=== PATIENT | female | born 1940 | race African-American/Black ===

== ENCOUNTER → 2018-08-04 | Outpatient (CLI) | payer MEDICARE, MEDICAID ==
[2018-08-04 11:07] LABS: ABSOLUTE BASOPHILS # (AUTO) 0.1 10^3/uL (0.0-0.2); ABSOLUTE EOSINOPHILS # (AUTO) 0.3 10^3/uL (0.0-0.6); ABSOLUTE LYMPHOCYTES (AUTO) 2.3 10^3/uL (0.5-4.7); ABSOLUTE MONOCYTES (AUTO) 0.8 10^3/uL (0.1-1.4); BASOPHILS % (AUTO) 1.8 % (0-2); EOSINOPHILS % (AUTO) 4.7 % (0-6); HEMATOCRIT 34.6 % (36.0-47.0); HEMOGLOBIN 11.4 g/dL (12.0-15.5); LYMPHOCYTES % (AUTO) 43.2 % (13-45); MEAN CORPUSCULAR HEMOGLOBIN 25.4 pg (27.0-33.4); MEAN CORPUSCULAR VOLUME 77 fl (80-97); MONOCYTES % (AUTO) 13.9 % (3-13); PLATELET COUNT 255 10^3/uL (150-450); RED BLOOD COUNT 4.49 10^6/uL (3.72-5.28); RED CELL DISTRIBUTION WIDTH 15.7 % (11.5-14.0); SEGMENTED NEUTROPHILS % (AUTO) 36.4 % (42-78); TOTAL CELLS COUNTED % (AUTO) 100 %; WHITE BLOOD COUNT 5.4 10^3/uL (4.0-10.5)
[2018-08-04 11:33] LABS: APPEARANCE,URINE TURBID; BILIRUBIN,URINE NEGATIVE (NEGATIVE); COLOR,URINE YELLOW; GLUCOSE, URINE NEGATIVE (NEGATIVE); KETONES,URINE NEGATIVE (NEGATIVE); LEUKOCYTE ESTERASE,URINE LARGE (NEGATIVE); NITRITE,URINE NEGATIVE (NEGATIVE); PROTEIN,URINE NEGATIVE (NEGATIVE); URINE SPECIFIC GRAVITY 1.008; UROBILINOGEN,URINE NEGATIVE mg/dL (<2.0)
[2018-08-04 12:57] LABS: ALANINE AMINOTRANSFERASE 21 U/L (9-52); ALBUMIN 4.2 g/dL (3.5-5.0); ALKALINE PHOSPHATASE 79 U/L (38-126); ANION GAP 13 (5-19); ASPARTATE AMINO TRANSFERASE 25 U/L (14-36); BILIRUBIN,DIRECT 0.2 mg/dL (0.0-0.4); BILIRUBIN,TOTAL 0.4 mg/dL (0.2-1.3); BLOOD UREA NITROGEN 33 mg/dL (7-20); CALCIUM 9.8 mg/dL (8.4-10.2); CARBON DIOXIDE 28 mmol/L (22-30); CHLORIDE 102 mmol/L (98-107); GLUCOSE 96 mg/dL (75-110); IRON(TIBC) 71.5 ug/dL (37-170); PHOSPHORUS 4.5 mg/dL (2.5-4.5); POTASSIUM 3.9 mmol/L (3.6-5.0); SODIUM 142.7 mmol/L (137-145); TOTAL PROTEIN 7.5 g/dL (6.3-8.2)
[2018-08-05 16:37] LABS: ALBUMIN 2 3.6 g/dL (2.9-4.4); ALPHA-2-GLOBULIN 2 0.9 g/dL (0.4-1.0); BETA GLOBULINS 1.2 g/dL (0.7-1.3); GAMMA GLOBULIN 1.2 g/dL (0.4-1.8); GLOBULIN TOTAL 3.6 g/dL (2.2-3.9); MONOCLONAL SPIKE 0.4 g/dL (Not Observ); PROTEIN TOTAL SERUM 7.2 g/dL (6.0-8.5)
== END ==
LOC: OD 10:12
PROVIDERS: ATTEND Internal Medicine Nephrology
DX: I12.9 Hypertensive chronic kidney disease with stage 1 through stage 4 chronic kidney disease, or unspecified chronic kidney disease (principal); N18.3 Chronic kidney disease, stage 3 (moderate); D63.1 Anemia in chronic kidney disease
CPT/HCPCS: 36415; 80053; 81001; 82728; 83540; 83550; 83735; 83970; 84100; 84165; 84443; 85025

== ENCOUNTER → 2018-08-11 | Outpatient (CLI) | payer MEDICARE, MEDICAID | LOC: OD 16:31 | PROVIDERS: ATTEND Internal Medicine Nephrology | DX: N39.0 Urinary tract infection, site not specified (principal) | CPT/HCPCS: 87086; 87088; 87186 ==

== ENCOUNTER 2018-08-13 09:50 | Day surgery (SDC) | payer MEDICARE, MEDICAID ==
[~2018-08-13 09:50] MED LIST: PROPOFOL INJ 200 MG/20 ML VIAL IV ONE
--- NOTE | 2018-08-13 10:38 | Operative Report ---
Operative Report DATE OF SURGERY: 08/13/18 Operative Report: The risks, benefits and alternatives of the procedure including the risks of bleeding, perforation requiring surgery have been explained to the patient in detail and informed consent has been obtained. Patient is placed in the left, lateral decubital position. Timeout was called. Propofol medication is administered. A rectal examination is done which did not reveal any masses, tears or fissures. An Olympus videoscope was introduced into the patient's rectum. The scope was then carefully advanced all the way to the cecum. The cecum was identified by the usual anatomical landmarks including the ileocecal valve as well as the appendiceal office. Photodocumentation is obtained. The scope was then sequentially pulled back via the various segments of the colon including the ascending colon, hepatic flexure, transverse colon, splenic flexure, descending colon and finally into the rectosigmoid portions of the colon. Retroflexion maneuvers performed. PREOPERATIVE DIAGNOSIS: Personal history of polyp POSTOPERATIVE DIAGNOSIS: Normal screening colonoscopy OPERATION: Colonoscopy diagnostic SURGEON: MEI WILKES ANESTHESIA: LMAC TISSUE REMOVED OR ALTERED: None. COMPLICATIONS: None. ESTIMATED BLOOD LOSS: As noted above. INTRAOPERATIVE FINDINGS: Incidental finding of diverticulosis and internal hemorrhoids PROCEDURE: Patient tolerated the procedure well. No immediate postprocedure complications are noted. Patient is discharged in good condition. Date of discharge 08/13/2018. Discharge diet: Regular. Discharge activity: Regular. 2 to 3-week follow-up to discuss findings. Patient is instructed to call the office or proceed to the emergency room should there be any further problems or questions. 10-year surveillance colonoscopy.
[2018-08-13 11:49] VITALS: BP 137/53
== END 2018-08-13 11:10 | disposition home or self-care (01) ==
LOC: END 09:50
PROVIDERS: ATTEND Internal Medicine Gastroenterology
DX: Z12.11 Encounter for screening for malignant neoplasm of colon (principal); K64.8 Other hemorrhoids; K57.30 Diverticulosis of large intestine without perforation or abscess without bleeding; Z86.010 Personal history of colon polyps; E03.9 Hypothyroidism, unspecified; I48.2 Chronic atrial fibrillation; Z79.899 Other long term (current) drug therapy; Z79.51 Long term (current) use of inhaled steroids; Z79.01 Long term (current) use of anticoagulants
CPT/HCPCS: 45378; 00811; J2704; 811

== ENCOUNTER 2018-10-26 16:56 | Observation (INO) | payer MEDICARE, MEDICAID ==
[~2018-10-26 16:56] MED LIST changes: -PROPOFOL INJ 200 MG/20 ML VIAL IV ONE; +REGADENOSON INJ 0.4 MG/5 ML DISP.SYRIN IV ONE
--- NOTE | 2018-10-26 18:53 | ER Document Report ---
ED Medical Screen (RME) - General Chief Complaint: Chest Pain Stated Complaint: CHEST PAIN Time Seen by Provider: 10/26/18 18:48 Primary Care Provider: Leo ANDERSEN MD [Primary Care Provider] - Follow up as needed Mode of Arrival: Ambulatory Information source: Patient Notes: Patient is a 78-year-old female presenting to the emergency department with chief complaint of chest pain. Patient reports onset of midsternal chest pressure approximately 1 hour prior to arrival. She states she also felt some palpitations with this. She denies any radiation of the pain, shortness of breath or nausea does report she had some numbness and tingling in her left hand. She states that the symptoms have mostly resolved. She does report a history of atrial fibrillation. Exam: Heart sounds S1-S2 present with no ectopy noted. Lung sounds clear and equal bilaterally. I have greeted and performed a rapid initial assessment of this patient. A comprehensive ED assessment and evaluation of the patient, analysis of test results and completion of the medical decision making process will be conducted by additional ED providers. I have specifically instructed the patient or family members with the patient to immediately return to any nursing staff should anything change in the patient's condition or with their chief complaint. This medical record was dictated with voice recognizing software. There may be grammatical, syntax errors that are unintended. TRAVEL OUTSIDE OF THE [place] IN LAST 30 DAYS: No - Related Data Allergies/Adverse Reactions: No Known Allergies Allergy (Verified 10/26/18 17:00) Past Medical History - Past Medical History Cardiac Medical History: Reports: Hx Hypertension Denies: Hx Coronary Artery Disease, Hx Heart Attack Pulmonary Medical History: Denies: Hx Asthma, Hx Bronchitis, Hx COPD, Hx Pneumonia Neurological Medical History: Denies: Hx Cerebrovascular Accident, Hx Seizures Musculoskeltal Medical History: Denies Hx Arthritis Past Surgical History: Reports: Hx Hysterectomy, Hx Thyroid Surgery - Immunizations Hx Diphtheria, Pertussis, Tetanus Vaccination: Yes Physical Exam - Vital signs Vitals: Temp Pulse Resp BP Pulse Ox 98.6 F 62 18 129/51 H 93 10/26/18 17:15 10/26/18 17:15 10/26/18 17:15 10/26/18 17:15 10/26/18 17:15 Course - Vital Signs Vital signs: Temp Pulse Resp BP Pulse Ox 98.6 F 62 18 129/51 H 93 10/26/18 17:15 10/26/18 17:15 10/26/18 17:15 10/26/18 17:15 10/26/18 17:15 Doctor's Discharge - Discharge Referrals: Leo ANDERSEN MD [Primary Care Provider] - Follow up as needed
--- NOTE | 2018-10-26 19:26 | RADIOLOGY REPORT (SQ) ---
EXAM DESCRIPTION: CHEST 2 VIEWS COMPLETED DATE/TIME: 10/26/2018 7:13 pm REASON FOR STUDY: chest pain COMPARISON: 08/26/2014 EXAM PARAMETERS: NUMBER OF VIEWS: two views TECHNIQUE: Digital Frontal and Lateral radiographic views of the chest acquired. RADIATION DOSE: NA LIMITATIONS: none FINDINGS: LUNGS AND PLEURA: No opacities, masses or pneumothorax. No pleural effusion. MEDIASTINUM AND HILAR STRUCTURES: No masses or contour abnormalities. HEART AND VASCULAR STRUCTURES: Borderline cardiomegaly. No pulmonary edema. BONES: No acute findings. HARDWARE: None in the chest. OTHER: No other significant finding. IMPRESSION: Borderline cardiomegaly without pulmonary edema. TECHNICAL DOCUMENTATION: JOB ID: [id number] [employer]- All Rights Reserved Reading location - IP/workstation name: [email or web address]
[2018-10-26 19:28] LABS: ABSOLUTE BASOPHILS # (AUTO) 0.1 10^3/uL (0.0-0.2); ABSOLUTE EOSINOPHILS # (AUTO) 0.4 10^3/uL (0.0-0.6); ABSOLUTE LYMPHOCYTES (AUTO) 3.4 10^3/uL (0.5-4.7); ABSOLUTE NEUT (AUTO) 4.1 10^3/uL (1.7-8.2); BASOPHILS % (AUTO) 0.9 % (0-2); EOSINOPHILS % (AUTO) 4.2 % (0-6); HEMATOCRIT 33.9 % (36.0-47.0); HEMOGLOBIN 11.2 g/dL (12.0-15.5); LYMPHOCYTES % (AUTO) 37.8 % (13-45); MEAN CORPUSCULAR HEMOGLOBIN 26.1 pg (27.0-33.4); MEAN CORPUSCULAR HGB CONC 33.2 g/dL (32.0-36.0); MEAN CORPUSCULAR VOLUME 79 fl (80-97); MONOCYTES % (AUTO) 11.1 % (3-13); PLATELET COUNT 255 10^3/uL (150-450); RED CELL DISTRIBUTION WIDTH 15.7 % (11.5-14.0); TOTAL CELLS COUNTED % (AUTO) 100 %; WHITE BLOOD COUNT 8.9 10^3/uL (4.0-10.5)
[2018-10-26 19:48] LABS: ALBUMIN 4.2 g/dL (3.5-5.0); ALKALINE PHOSPHATASE 76 U/L (38-126); ANION GAP 8 (5-19); ASPARTATE AMINO TRANSFERASE 30 U/L (14-36); BILIRUBIN,DIRECT 0.1 mg/dL (0.0-0.4); BILIRUBIN,TOTAL 0.3 mg/dL (0.2-1.3); BLOOD UREA NITROGEN 29 mg/dL (7-20); CALCIUM 9.4 mg/dL (8.4-10.2); CARBON DIOXIDE 34 mmol/L (22-30); CHLORIDE 101 mmol/L (98-107); GLUCOSE 99 mg/dL (75-110); POTASSIUM 3.7 mmol/L (3.6-5.0); TOTAL PROTEIN 7.7 g/dL (6.3-8.2)
[2018-10-26] MEDS ORDERED: ASPIRIN 325 MG TABLET PO ONE (20:12)
--- NOTE | 2018-10-26 20:12 | ER Document Report ---
ED General - General Chief Complaint: Chest Pain Stated Complaint: CHEST PAIN Time Seen by Provider: 10/26/18 18:48 Primary Care Provider: Leo ANDERSEN MD [Primary Care Provider] - Follow up as needed Mode of Arrival: Ambulatory Notes: 78-year-old lady with A. fib, hypertension hyperlipidemia on Pradaxa who presents with chest pain. Described as "like a cramping or thigh but in my ch est" and intermittent for minutes at a time starting about 3 hours ago. Accompanied by left arm numbness and tingling. Currently chest painfree. No shortness of breath nausea vomiting or sweating. This happened in the past and she said she been checked out and is been told she did not have a heart attack. She had a stress test and a cath "a good bit ago" which she means greater than 10 years. She does not feel like these are A. fib episodes because they feel different. Denies palpitations. No radiation of pain to back no ripping or tearing pain. TRAVEL OUTSIDE OF THE [place] IN LAST 30 DAYS: No - Related Data Allergies/Adverse Reactions: No Known Allergies Allergy (Verified 10/26/18 17:00) Past Medical History - General Information source: Patient - Social History Smoking Status: Never Smoker Frequency of alcohol use: None Drug Abuse: None Family History: Hypertension, Malignancy, Other - Patient's mother had colon cancer Patient has suicidal ideation: No Patient has homicidal ideation: No - Past Medical History Cardiac Medical History: Reports: Hx Hypertension Denies: Hx Coronary Artery Disease, Hx Heart Attack Pulmonary Medical History: Denies: Hx Asthma, Hx Bronchitis, Hx COPD, Hx Pneumonia Neurological Medical History: Denies: Hx Cerebrovascular Accident, Hx Seizures Musculoskeletal Medical History: Denies Hx Arthritis Past Surgical History: Reports: Hx Hysterectomy, Hx Thyroid Surgery - Immunizations Hx Diphtheria, Pertussis, Tetanus Vaccination: Yes Hx Pneumococcal Vaccination: 02/17/16 Review of Systems - Review of Systems Notes: REVIEW OF SYSTEMS GEN: Denies fever, chills, weight loss ENT: Denies sore throat, nasal discharge, ear pain EYES: Denies blurry vision, eye pain, discharge CV: Chest pain RESP: Denies cough, shortness of breath, wheezing GI: Denies abdominal pain, nausea, vomiting, diarrhea MSK: Denies joint pain/swelling, edema, SKIN: Denies rash, skin lesions LYMPH: Denies swollen glands/lymph nodes NEURO: Denies headache, dizziness PSYCH: Denies depression, suicidal or homicidal ideation PHYSICAL EXAMINATION General: No acute distress, well-nourished Head: Atraumatic, normocephalic ENT: Mouth normal, oropharynx moist, no exudates or tonsillar enlargement Eyes: Conjunctiva normal, pupils equal, lids normal Neck: No JVD, supple, no guarding CVS: Normal rate, regular rhythm, no murmurs Resp: No resp distress, equal and normal breath sounds bilaterally GI: Nondistended, soft, no tenderness to palpation, no rebound or guarding Ext: No deformities, no edema, normal range of motion in upper and lower ext Back: No CVA or midline TTP Skin: No rash, warm Lymphatic: No lymphadeopathy noted Neuro: Awake, alert. Face symmetric. GCS 15. Physical Exam - Vital signs Vitals: Temp Pulse Resp BP Pulse Ox 98.6 F 62 18 129/51 H 93 10/26/18 17:15 10/26/18 17:15 10/26/18 17:15 10/26/18 17:15 10/26/18 17:15 Course - Re-evaluation Re-evalutation: 10/26/18 20:11 Elderly female with risk factors for ACS and distant catheterization without stents presents with chest pain with both typical and atypical features intermittent for 3 hours. Her ECG is stably mildly abnormal with no true ST depression or ST elevations. Doubt dissection or PE. Will check troponin and possibly deltatroponin. Will give aspirin. 10/26/18 20:42 Heart score is 7. Pain-free from a chest pain standpoint. Troponin negative and no other expiration of pain identified. Will discuss with hospitalist on steroid for admission for chest pain rule out. - Vital Signs Vital signs: Temp Pulse Resp BP Pulse Ox 98 F 62 14 153/59 H 98 10/26/18 20:05 10/26/18 17:15 10/26/18 20:05 10/26/18 20:05 10/26/18 20:05 - Laboratory Result Diagrams: 10/26/18 19:02 10/26/18 19:02 Laboratory results interpreted by me: 10/26/18 10/26/18 19:02 19:02 Hgb 11.2 L Hct 33.9 L MCV 79 L MCH 26.1 L RDW 15.7 H Carbon Dioxide 34 H BUN 29 H Creatinine 1.65 H Est GFR ( Amer) 36 L Est GFR (MDRD) Non-Af 30 L Discharge - Discharge Clinical Impression: Chest pain, unspecified Qualifiers: Chest pain type: other chest pain Qualified Code(s): R07.89 - Other chest pain Condition: Good Disposition: ADMITTED OBSERVATION Admitting Provider: Dexter (Hospitalist) Unit Admitted: Telemetry Referrals: Leo ANDERSEN MD [Primary Care Provider] - Follow up as needed
--- NOTE | 2018-10-26 20:56 | EKG REPORT ---
SEVERITY:- BORDERLINE ECG - SINUS RHYTHM BORDERLINE T ABNORMALITIES, ANT-LAT LEADS : Confirmed by: Floresita Long MD 26-Oct-2018 20:55:04
[2018-10-26] MEDS ORDERED: MAG HYDROX/AL HYDROX/SIMETH SUSP 30 ML UDCUP PO PRN (21:46)
[2018-10-26] MEDS ORDERED: NITROGLYCERIN 0.4 MG/TAB 25 TAB/BOTTLE SL PRN (21:46)
[2018-10-26] MEDS ORDERED: ACETAMINOPHEN 325 MG TABLET PO PRN (21:46)
[2018-10-26] MEDS ORDERED: ATORVASTATIN CALCIUM 20 MG TABLET PO SCH (22:00)
[2018-10-27] MEDS ORDERED: DABIGATRAN ETEXILATE 150 MG CAPSULE PO ONE (00:10)
[2018-10-27] MEDS ORDERED: HYDRALAZINE HCL 25 MG TABLET PO ONE (00:10)
[2018-10-27] MEDS ORDERED: NORMAL SALINE 1000 ML 1,000 ML IV ONE (02:27)
--- NOTE | 2018-10-27 02:28 | PDOC H&P ---
History of Present Illness Admission Date/PCP: 10/26/18 21:13 JAXON MILLER MD Patient complains of: Chest pain History of Present Illness: KATARZYNA MADRID is a 78 year old female with a past medical history of hypertension, dyslipidemia and atrial fibrillation on Pradaxa. She presents with heavy muscular cramping of the inside of her chest 4 out of 5 intensity lasting 45 minutes without radiation associated with shortness of breath, palpitations without nausea or vomiting. She is unable to identify alleviating or exacerbating factors. It is occurred several times in the last 6 hours prompting her to seek evaluation emergency room where she is found to have uncontrolled hypertension, anemia, acute renal failure and referred to the hospitalist for admission. Previous stress testing obtained with her livestock haulier Dr. Zach Ventura occurred approximately 1 year ago which was reportedly unremarkable. She denies recent change of medications and is othe rwise been feeling well. Past Medical History Cardiac Medical History: Reports: Atrial Fibrillation, Hypertension Denies: Coronary Artery Disease, Myocardial Infarction Pulmonary Medical History: Denies: Asthma, Bronchitis, Chronic Obstructive Pulmonary Disease (COPD), Pneumonia Neurological Medical History: Denies: Seizures Musculoskeltal Medical History: Denies: Arthritis Psychiatric Medical History: Denies: Depression Hematology: Denies: Anemia Past Surgical History Past Surgical History: Reports: Hysterectomy Social History Information Source: Patient Smoking Status: Never Smoker Frequency of Alcohol Use: None Hx Recreational Drug Use: No Drugs: None Hx Prescription Drug Abuse: No - Advance Directive Resuscitation Status: Full Code Family History Family History: Hypertension, Malignancy, Other - Patient's mother had colon c ancer Parental Family History Reviewed: Yes Children Family History Reviewed: Yes Sibling(s) Family History Reviewed.: Yes Medication/Allergy Home Medications: Albuterol Sulfate [Proair Hfa Inhalation Aerosol 8.5 gm Mdi] 1 puff IH ASDIR PRN 10/26/18 Ascorbic Acid [Vitamin C 500 mg Tablet] 500 mg PO DAILY 10/26/18 Aspirin [[place] Aspirin] 81 mg PO DAILY 10/26/18 Calcium Carbonate/Vitamin D3 [Calcium 600 + Vit D Tablet] 1 tab PO DAILY 10/26/18 Dabigatran Etexilate Mesylate [Pradaxa 150 mg Capsule] 150 mg PO Q12 10/26/18 Dronedarone Hydrochloride [Multaq 400 Mg Tablet] 400 mg PO Q12 10/26/18 Ferrous Sulfate [Iron] 325 mg PO DAILY 10/26/18 Furosemide [Lasix 20 mg Tablet] 40 mg PO DAILY 10/26/18 Hydralazine HCl [Apresoline 25 mg Tablet] 25 mg PO Q12 10/26/18 Levothyroxine Sodium [Synthroid] 200 mcg PO Q6AM 10/26/18 Losartan Potassium [Cozaar 100 mg Tablet] 100 mg PO DAILY 10/26/18 Metoprolol Tartrate [Lopressor 100 mg Tablet] 100 mg PO Q12 10/26/18 Multivitamin [One-A-Day Essential] 1 each PO DAILY 10/26/18 Nifedipine [Nifedipine ER] 90 mg PO DAILY 10/26/18 Allergies/Adverse Reactions: No Known Allergies Allergy (Verified 10/26/18 17:00) Review of Systems Constitutional: ABSENT: chills, fever(s), headache(s), weight gain, weight loss Eyes: ABSENT: visual disturbances Ears: ABSENT: hearing changes Cardiovascular: ABSENT: chest pain, dyspnea on exertion, edema, orthropnea, palpitations Respiratory: ABSENT: cough, hemoptysis Gastrointestinal: ABSENT: abdominal pain, constipation, diarrhea, hematemesis, hematochezia, nausea, vomiting Genitourinary: ABSENT: dysuria, hematuria Musculoskeletal: ABSENT: joint swelling Integumentary: ABSENT: rash, wounds Neurological: ABSENT: abnormal gait, abnormal speech, confusion, dizziness, focal weakness, syncope Psychiatric: ABSENT: anxiety, depression, homidical ideation, suicidal ideation Endocrine: ABSENT: cold intolerance, heat intolerance, polydipsia, polyuria Hematologic/Lymphatic: ABSENT: easy bleeding, easy bruising Physical Exam Vital Signs: Temp Pulse Resp BP Pulse Ox 98.2 F 58 L 16 155/58 H 98 10/26/18 23:00 10/26/18 23:14 10/26/18 23:00 10/26/18 23:00 10/26/18 23:00 Intake & Output 10/25/18 10/26/18 10/27/18 11:59 11:59 11:59 Intake Total 0 Balance 0 Weight 88.3 kg General appearance: PRESENT: no acute distress, well-developed, well-nourished Head exam: PRESENT: atraumatic, normocephalic Eye exam: PRESENT: conjunctiva pink, EOMI, PERRLA. ABSENT: scleral icterus Ear exam: PRESENT: normal external ear exam Mouth exam: PRESENT: moist, tongue midline Neck exam: ABSENT: carotid bruit, JVD, lymphadenopathy, thyromegaly Respiratory exam: PRESENT: clear to auscultation cinda. ABSENT: rales, rhonchi, wheezes Cardiovascular exam: PRESENT: RRR. ABSENT: diastolic murmur, rubs, systolic murmur Pulses: PRESENT: normal dorsalis pedis pul Vascular exam: PRESENT: normal capillary refill GI/Abdominal exam: PRESENT: normal bowel sounds, soft. ABSENT: distended, guarding, mass, organolmegaly, rebound, tenderness Rectal exam: PRESENT: deferred Extremities exam: PRESENT: full ROM. ABSENT: calf tenderness, clubbing, pedal edema Neurological exam: PRESENT: alert, awake, oriented to person, oriented to place, oriented to time, oriented to situation, CN II-XII grossly intact. ABSENT: motor sensory deficit Psychiatric exam: PRESENT: appropriate affect, normal mood. ABSENT: homicidal ideation, suicidal ideation Skin exam: PRESENT: dry, intact, warm. ABSENT: cyanosis, rash Results Laboratory Results: 10/26/18 19:02 10/26/18 19:02 10/26/18 10/26/18 19:02 19:02 WBC 8.9 RBC 4.30 Hgb 11.2 L Hct 33.9 L MCV 79 L MCH 26.1 L MCHC 33.2 RDW 15.7 H Plt Count 255 Seg Neutrophils % 46.0 Sodium 143.1 Potassium 3.7 Chloride 101 Carbon Dioxide 34 H Anion Gap 8 BUN 29 H Creatinine 1.65 H Est GFR ( Amer) 36 L Glucose 99 Calcium 9.4 Total Bilirubin 0.3 AST 30 Alkaline Phosphatase 76 Total Protein 7.7 Albumin 4.2 10/26/18 10/27/18 19:02 00:57 Troponin I < 0.012 < 0.012 Impressions: Chest X-Ray 10/26/18 18:51 IMPRESSION: Borderline cardiomegaly without pulmonary edema. Assessment and Plan - Diagnosis (1) Anemia Is this a current diagnosis for this admission?: Yes Plan: Microcytic, likely iron deficient. Follow-up anemia studies (2) Acute renal failure Is this a current diagnosis for this admission?: Yes Plan: Appears prerenal, hold Lasix, IV fluid challenge, follow-up Chem-7 avoid nephrotoxic meds and doses (3) Chest pain, unspecified Qualifiers: Chest pain type: other chest pain Qualified Code(s): R07.89 - Other chest pain; R07.8 - Other chest pain Is this a current diagnosis for this admission?: Yes Plan: Atypical chest pain though the patient's pain is atypical there are multiple risk factors for coronary artery disease and subsequently will observe and ev aluation of acute coronary syndrome versus coronary artery disease with anginal equivalents. Cardiac monitoring blood pressure Q6 hours ,TSH, lipid profile, serial cardiac enzymes and cardiac stress test - Time Time Spent with patient: 25-34 minutes - Inpatient Certification Medical Necessity: Need Close Monitoring Due to Risk of Patient Decompensation
[2018-10-27] MEDS ORDERED: NORMAL SALINE 1000 ML 1,000 ML IV PRN (09:42)
[2018-10-27] MEDS ORDERED: DRONEDARONE HYDROCHLORIDE 400 MG TABLET PO SCH (10:00)
[2018-10-27] MEDS ORDERED: HYDRALAZINE HCL 25 MG TABLET PO SCH (10:00)
[2018-10-27] MEDS ORDERED: LOSARTAN POTASSIUM 50 MG TABLET PO SCH (10:00)
[2018-10-27] MEDS ORDERED: ASPIRIN 81 MG TABLET, ENT COATED PO SCH (10:00)
[2018-10-27] MEDS ORDERED: DABIGATRAN ETEXILATE 150 MG CAPSULE PO SCH (10:00)
[2018-10-27 15:31] VITALS: BP 133/45
--- NOTE | 2018-10-28 17:53 | PDOC DISCHARGE SUMMARY ---
General - Admit/Disc Date/PCP Admission Date/Primary Care Provider: 10/26/18 21:13 Leo ANDERSEN MD Discharge Date: 10/27/18 - Discharge Diagnosis (1) Chest pain, unspecified Is this a current diagnosis for this admission?: Yes - Additional Information Resuscitation Status: Full Code Discharge Diet: Cardiac Discharge Activity: Activity As Tolerated, Balance Activity w/Rest Prescriptions: Pantoprazole Sodium [Protonix] 40 mg PO QAM #30 tablet. Home Medications: Albuterol Sulfate [Proair HFA Inhalation Aerosol 8.5 gm MDI] 1 puff IH ASDIR PRN 10/26/18 Ascorbic Acid [Vitamin C 500 mg Tablet] 500 mg PO DAILY 10/26/18 Aspirin [[place] Aspirin] 81 mg PO DAILY 10/26/18 Calcium Carbonate/Vitamin D3 [Calcium 600 + Vit D Tablet] 1 tab PO DAILY 10/26/18 Dabigatran Etexilate Mesylate [Pradaxa 150 mg Capsule] 150 mg PO Q12 10/26/18 Dronedarone Hydrochloride [Multaq 400 mg Tablet] 400 mg PO Q12 10/26/18 Ferrous Sulfate [Iron] 325 mg PO DAILY 10/26/18 Furosemide [Lasix 20 mg Tablet] 40 mg PO DAILY 10/26/18 Hydralazine HCl [Apresoline 25 mg Tablet] 25 mg PO Q12 10/26/18 Levothyroxine Sodium [Synthroid] 200 mcg PO Q6AM 10/26/18 Losartan Potassium [Cozaar 100 mg Tablet] 100 mg PO DAILY 10/26/18 Metoprolol Tartrate [Lopressor 100 mg Tablet] 100 mg PO Q12 10/26/18 Multivitamin [One-A-Day Essential] 1 each PO DAILY 10/26/18 Nifedipine [Nifedipine ER] 90 mg PO DAILY 10/26/18 Pantoprazole Sodium [Protonix] 40 mg PO QAM #30 tablet. 10/27/18 History of Present Illness History of Present Illness: Admitting hospitalist' H&P: KATARZYNA MADRID is a 78 year old female with a past medical history of h ypertension, dyslipidemia and atrial fibrillation on Pradaxa. She presents with heavy muscular cramping of the inside of her chest 4 out of 5 intensity lasting 45 minutes without radiation associated with shortness of breath, palpitations without nausea or vomiting. She is unable to identify alleviating or exacerbating factors. It is occurred several times in the last 6 hours prompting her to seek evaluation emergency room where she is found to have uncontrolled hypertension, anemia, acute renal failure and referred to the hospitalist for admission. Previous stress testing obtained with her testing consultant Dr. Zach Ventura occurred approximately 1 year ago which was reportedly unremarkable. She denies recent change of medications and is otherwise been feeling well. Hospital Course Hospital Course: Patient was admitted for chest pain. Her EKGs and troponins were cycled and they came back negative. She has been chest pain-free since admission. Stress testing was pursued and came back unremarkable as well. She will be given a trial of PPI and will closely follow-up with her PCP. Physical Exam Vital Signs: Temp Pulse Resp BP Pulse Ox 98.0 F 59 L 17 133/45 H 99 10/27/18 15:18 10/27/18 15:18 10/27/18 15:18 10/27/18 15:18 10/27/18 15:18 Intake & Output 10/27/18 10/28/18 10/29/18 06:59 06:59 06:59 Intake Total 240 1120 Balance 240 1120 Weight 194 lb 10.691 oz General appearance: PRESENT: no acute distress, well-developed, well-nourished Head exam: PRESENT: atraumatic, normocephalic Eye exam: PRESENT: conjunctiva pink, EOMI, PERRLA. ABSENT: scleral icterus Ear exam: PRESENT: normal external ear exam Mouth exam: PRESENT: moist, tongue midline Neck exam: ABSENT: carotid bruit, JVD, lymphadenopathy, thyromegaly Respiratory exam: PRESENT: clear to auscultation cinda. ABSENT: rales, rhonchi, wheezes Cardiovascular exam: PRESENT: RRR. ABSENT: diastolic murmur, rubs, systolic murmur Pulses: PRESENT: normal dorsalis pedis pul GI/Abdominal exam: PRESENT: normal bowel sounds, soft. ABSENT: distended, guarding, mass, organolmegaly, rebound, tenderness Rectal exam: PRESENT: deferred Extremities exam: PRESENT: full ROM. ABSENT: calf tenderness, clubbing, pedal edema Neurological exam: PRESENT: alert, awake, oriented to person, oriented to place, oriented to time, oriented to situation, CN II-XII grossly intact. ABSENT: motor sensory deficit Results Laboratory Results: 10/26/18 19:02 10/26/18 19:02 10/26/18 10/27/18 10/27/18 19:02 00:57 08:08 Troponin I < 0.012 < 0.012 < 0.012 Impressions: Chest X-Ray 10/26/18 18:51 IMPRESSION: Borderline cardiomegaly without pulmonary edema. Qualifiers - * PATIENT BEING DISCHARGED WITH ANY OF THE FOLLOWING DIAGNOSIS: No Acute Heart Failure - Is this a Heart Failure Patient?: No
--- NOTE | 2018-10-28 23:49 | DRAGON STRESS TEST REPORT ---
Intravenous Lexiscan Cardiolite stress test using single photon emmision computerized tomography. Date of procedure: 10/27/2018. Ordering Provider: Dr. Matt Renteria.Patient's status: In patient. Indication: Chest pain. Coronary risk factors: Age, hypertension, and dyslipidemia. Resting EKG: Sinus Rhythm. LVH by voltage. Stress EKG: No changes of ischemia. The patient has no chest pain or discomfort. There was no arrhythmias seen. Reason for termination: Protocol. Conclusions: Normal EKG and hemodynamic response to IV Lexiscan. Nuclear data: At rest the patient was given 13.66 millicuries of technetium 99m sestamibi injected intravenously. As per protocol rest non gated SPECT images were obtained. Subsequently the patient was given intravenous Lexiscan at a dose of 0.4 mg in 5 mL intravenously, followed by flush with normal saline. Subsequently the stress dose of 39.1 millicuries of technetium 99m sestamibi was injected intravenously. As per protocol stress gated images were obtained. Nuclear interpretation: Review of images showed that all segments of the myocardium had normal perfusion at rest, and normal perfusion post stress with IV Lexiscan. All segments of the myocardium had normal motion, contraction, and thickening by gated study. T. I D. ratio was normal at 1.13. There is no transient ischemic dilatation of the left ventricle. Computer read rest, and stress left ventricular ejection fraction were 65 %, and 66 %, respectively. . Conclusion: 1. There is no scintigraphic evidence of Lexiscan induced myocardial ischemia. 2. There is no scintigraphic evidence of myocardial infarction/scar. Recommendations: Aggressive risk factor modification, and treating the underlying co- morbidities. MTDD
== END 2018-10-27 18:09 | disposition home or self-care (01) ==
LOC: ER 16:56 → EH 21:13 → 4W 23:12
PROVIDERS: ADMIT Internal Medicine; ATTEND Internal Medicine
DX: R07.89 Other chest pain (principal); I48.91 Unspecified atrial fibrillation; R06.02 Shortness of breath; D50.9 Iron deficiency anemia, unspecified; N17.9 Acute kidney failure, unspecified; I10 Essential (primary) hypertension; E78.5 Hyperlipidemia, unspecified; R20.0 Anesthesia of skin; R20.2 Paresthesia of skin; Z79.899 Other long term (current) drug therapy; Z79.82 Long term (current) use of aspirin; Z79.02 Long term (current) use of antithrombotics/antiplatelets; Z82.49 Family history of ischemic heart disease and other diseases of the circulatory system
CPT/HCPCS: 93005; 99285; 36415; 85025; 80053; 84484 ×2; 93017; 71046; 78452; 93010; G0378 ×3; A9500; J2785; A9270 ×6; J3490; J7030; Q9969

== ENCOUNTER → 2018-11-09 | Outpatient (CLI) | payer MEDICARE, MEDICAID ==
--- NOTE | 2018-11-09 19:55 | RADIOLOGY REPORT (SQ) ---
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 TECHNIQUE: Images of the axial and proximal appendicular skeleton are obtained, along with lateral s kull and frontal chest films. LIMITATIONS: None. FINDINGS: AP CHEST: No bony findings. Lungs are clear. LATERAL SKULL: No worrisome bone lesions. AP BOTH HUMERI: No worrisome bone lesions. TWO-VIEW LUMBAR SPINE: No worrisome bone lesions. TWO-VIEW THORACIC SPINE: No worrisome bone lesions. AP PELVIS: No worrisome bone lesions. AP BOTH FEMURS: No worrisome bone lesions. OTHER: No other significant finding. IMPRESSION: NO WORRISOME BONE LESIONS. TECHNICAL DOCUMENTATION: JOB ID: [id number] [employer]- All Rights Reserved Reading location - IP/workstation name: [email or web address]
== END ==
LOC: RAD 14:22
PROVIDERS: ATTEND Internal Medicine Hematology & Oncology
DX: D47.2 Monoclonal gammopathy (principal); C90.00 Multiple myeloma not having achieved remission
CPT/HCPCS: 77075

== ENCOUNTER 2018-11-19 17:41 | Observation (INO) | payer MEDICARE, MEDICAID ==
[2018-11-19] MEDS ORDERED: ASPIRIN 81 MG TABLET, CHEWABLE PO ONE (18:01)
--- NOTE | 2018-11-19 18:01 | ER Document Report ---
ED Medical Screen (RME) - General Chief Complaint: Irregular Pulse Stated Complaint: IRREGULAR HEART RATE Time Seen by Provider: 11/19/18 17:58 Primary Care Provider: SEBLE MEDLEY MD [Primary Care Provider] - Follow up as needed Mode of Arrival: Wheelchair Information source: Patient Notes: 78-year-old female presented to ED for dizziness lightheaded diuresis and irregular heartbeat. She states she has atrial fib and she knew she needed to come to the hospital and get it evaluated. She is alert oriented respirations. 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 fib, high blood pressure, cholesterol, kidney disease, and possible cancer. Patient is alert oriented respirations regular and unlabored at this time. She states she had a history of atrial fibrillation about 10 years or more. She states she has been hospitalized for atrial fibrillation times. I have greeted and performed a rapid initial assessment of this patient. A c omprehensive ED assessment and evaluation of the patient, analysis of test results and completion of medical decision making process will be conducted by an additional ED providers. TRAVEL OUTSIDE OF THE [place] IN LAST 30 DAYS: No - Related Data Allergies/Adverse Reactions: No Known Allergies Allergy (Verified 11/19/18 17:57) Past Medical History - Past Medical History Cardiac Medical History: Reports: Hx Atrial Fibrillation, Hx Hypertension Denies: Hx Coronary Artery Disease, Hx Heart Attack Pulmonary Medical History: Denies: Hx Asthma, Hx Bronchitis, Hx COPD, Hx Pneumonia Neurological Medical History: Denies: Hx Cerebrovascular Accident, Hx Seizures Musculoskeltal Medical History: Denies Hx Arthritis Psychiatric Medical History: Denies: Hx Depression Past Surgical History: Reports: Hx Hysterectomy, Hx Thyroid Surgery - Immunizations Hx Diphtheria, Pertussis, Tetanus Vaccination: Yes Doctor's Discharge - Discharge Referrals: SEBLE MEDLEY MD [Primary Care Provider] - Follow up as needed
--- NOTE | 2018-11-19 18:40 | RADIOLOGY REPORT (SQ) ---
EXAM DESCRIPTION: CHEST 2 VIEWS COMPLETED DATE/TIME: 11/19/2018 6:19 pm REASON FOR STUDY: a fib dizziness diaphoresis COMPARISON: Two-view chest 10/26/2018, 08/26/2014 EXAM PARAMETERS: NUMBER OF VIEWS: two views TECHNIQUE: Digital Frontal and Lateral radiographic views of the chest acquired. RADIATION DOSE: NA LIMITATIONS: none FINDINGS: LUNGS AND PLEURA: No opacities, masses or pneumothorax. No pleural effusion. MEDIASTINUM AND HILAR STRUCTURES: No masses or contour abnormalities. HEART AND VASCULAR STRUCTURES: Mild cardiomegaly. BONES: No acute findings. HARDWARE: None in the chest. OTHER: Clips right upper quadrant post cholecystectomy IMPRESSION: No acute findings TECHNICAL DOCUMENTATION: JOB ID: [id number] [employer]- All Rights Reserved Reading location - IP/workstation name: [email or web address]
[2018-11-19 19:36] LABS: ABSOLUTE BASOPHILS # (AUTO) 0.1 10^3/uL (0.0-0.2); ABSOLUTE EOSINOPHILS # (AUTO) 0.4 10^3/uL (0.0-0.6); ABSOLUTE LYMPHOCYTES (AUTO) 3.1 10^3/uL (0.5-4.7); ABSOLUTE MONOCYTES (AUTO) 0.8 10^3/uL (0.1-1.4); ABSOLUTE NEUT (AUTO) 2.9 10^3/uL (1.7-8.2); BASOPHILS % (AUTO) 1.2 % (0-2); EOSINOPHILS % (AUTO) 5.3 % (0-6); HEMATOCRIT 34.4 % (36.0-47.0); HEMOGLOBIN 11.5 g/dL (12.0-15.5); LYMPHOCYTES % (AUTO) 42.2 % (13-45); MEAN CORPUSCULAR HEMOGLOBIN 26.6 pg (27.0-33.4); MEAN CORPUSCULAR HGB CONC 33.3 g/dL (32.0-36.0); MEAN CORPUSCULAR VOLUME 80 fl (80-97); MONOCYTES % (AUTO) 11.1 % (3-13); PLATELET COUNT 262 10^3/uL (150-450); RED BLOOD COUNT 4.31 10^6/uL (3.72-5.28); RED CELL DISTRIBUTION WIDTH 16.2 % (11.5-14.0); SEGMENTED NEUTROPHILS % (AUTO) 40.2 % (42-78); TOTAL CELLS COUNTED % (AUTO) 100 %; WHITE BLOOD COUNT 7.3 10^3/uL (4.0-10.5)
[2018-11-19 19:41] LABS: INTERNATIONAL RATION (INR) 1.96; PROTHROMBIN TIME 22.6 SEC (11.4-15.4)
[2018-11-19 19:42] LABS: PARTIAL THROMBOPLASTIN TIME 79.9 SEC (23.5-35.8)
[2018-11-19 20:06] LABS: CREATINE KINASE MB 0.89 ng/mL (<4.55); NT PRO BNP 247 pg/mL (<450); TROPONIN I < 0.012 ng/mL
[2018-11-19 20:34] LABS: ALBUMIN 4.6 g/dL (3.5-5.0); ALKALINE PHOSPHATASE 87 U/L (38-126); ANION GAP 13 (5-19); ASPARTATE AMINO TRANSFERASE 64 U/L (14-36); BILIRUBIN,DIRECT 0.3 mg/dL (0.0-0.4); BILIRUBIN,TOTAL 0.3 mg/dL (0.2-1.3); BLOOD UREA NITROGEN 29 mg/dL (7-20); CALCIUM 9.5 mg/dL (8.4-10.2); CARBON DIOXIDE 30 mmol/L (22-30); CHLORIDE 97 mmol/L (98-107); CREATINE KINASE 106 U/L (30-135); GLUCOSE 96 mg/dL (75-110); TOTAL PROTEIN 8.7 g/dL (6.3-8.2)
[2018-11-19] MEDS ORDERED: POTASSIUM CHLORIDE 20 MEQ PACKET PO ONE (22:03)
--- NOTE | 2018-11-19 22:20 | ER Document Report ---
ED General - General Chief Complaint: Irregular Pulse Stated Complaint: IRREGULAR HEART RATE Time Seen by Provider: 11/19/18 17:58 Primary Care Provider: SEBLE MEDLEY MD [Primary Care Provider] - Follow up as needed Mode of Arrival: Wheelchair TRAVEL OUTSIDE OF THE [place] IN LAST 30 DAYS: No - HPI Notes: This is a 78-year-old female who presents today with a complaint of palpitations, and a near syncopal episode. Patient states that she was trying to shop when she felt her heart racing, she became very diaphoretic, and she felt like she was going to pass out. She denies chest pain. Patient states that she feels much better now. Patient states that she feels like she went into A. fib. She has a history of proximal atrial fibrillation. She takes Pradaxa. She denies any fever or chills. She denies any recent illness. She describes her symptoms as moderate. Asymptomatic at this time. - Related Data Allergies/Adverse Reactions: No Known Allergies Allergy (Verified 11/19/18 17:57) Past Medical History - General Information source: Patient - Social History Smoking Status: Unknown if Ever Smoked Chew tobacco use (# tins/day): No Frequency of alcohol use: None Drug Abuse: None Family History: Hypertension, Malignancy, Other Patient has suicidal ideation: No Patient has homicidal ideation: No - Past Medical History Cardiac Medical History: Reports: Hx Atrial Fibrillation, Hx Hypertension Denies: Hx Coronary Artery Disease, Hx Heart Attack Pulmonary Medical History: Denies: Hx Asthma, Hx Bronchitis, Hx COPD, Hx Pneumonia Neurological Medical History: Denies: Hx Cerebrovascular Accident, Hx Seizures Musculoskeletal Medical History: Denies Hx Arthritis Psychiatric Medical History: Denies: Hx Depression Past Surgical History: Reports: Hx Hysterectomy, Hx Thyroid Surgery - Immunizations Hx Diphtheria, Pertussis, Tetanus Vaccination: Yes Hx Pneumococcal Vaccination: 02/17/16 Review of Systems - Review of Systems Cardiovascular: Palpitations, Heart racing, Other - Near syncopal episode.. denies: Chest pain Neurological/Psychological: denies: Headaches, Numbness, Suicidal ideation -: Yes All other systems reviewed and negative Physical Exam - Vital signs Vitals: Pulse Ox 99 11/19/18 22:16 Interpretation: Bradycardic - General General appearance: Appears well, Alert - Respiratory Respiratory status: No respiratory distress Chest status: Nontender Breath sounds: Normal Chest palpation: Normal - Cardiovascular Rhythm: Regular Heart sounds: Normal auscultation Murmur: No - Abdominal Inspection: Normal Distension: No distension Bowel sounds: Normal Tenderness: Nontender Organomegaly: No organomegaly - Back Back: Normal, Nontender - Neurological Neuro grossly intact: Yes Cognition: Normal Orientation: AAOx4 [place] Coma Scale Eye Opening: Spontaneous [place] Coma Scale Verbal: Oriented [place] Coma Scale Motor: Obeys Commands [place] Coma Scale Total: 15 Speech: Normal Motor strength normal: LUE, RUE, LLE, RLE Sensory: Normal - Psychological Associated symptoms: Normal affect, Normal mood - Skin Skin Temperature: Warm Skin Moisture: Dry Skin Color: Normal Course - Re-evaluation Re-evalutation: 11/19/18 23:17 Patient reevaluated. Patient is doing well. Labs and imaging reviewed. Patient's care discussed with Dr. Galan. Will admit. 11/19/18 23:18 - Vital Signs Vital signs: Temp Pulse Resp BP Pulse Ox 98.6 F 59 L 23 H 135/60 H 97 11/19/18 22:28 11/19/18 22:28 11/19/18 22:28 11/19/18 22:28 11/19/18 22:28 11/19/18 22:18 Differential diagnosis includes arrhythmia versus electrolyte abnormality. Gi ailin diaphoresis, bradycardia, near syncope, I will bring this patient in for ACS rule out also. EKG shows atrial fibrillation with a ventricular rate of 61 bpm. Normal axis. Normal intervals. No acute injury pattern. - Laboratory Result Diagrams: 11/19/18 19:17 11/19/18 19:17 Laboratory results interpreted by me: 11/19/18 11/19/18 11/19/18 19:17 19:17 19:17 Hgb 11.5 L Hct 34.4 L MCH 26.6 L RDW 16.2 H Seg Neutrophils % 40.2 L PT 22.6 H APTT 79.9 H Potassium 3.0 L* Chloride 97 L BUN 29 H Creatinine 1.84 H Est GFR ( Amer) 32 L Est GFR (MDRD) Non-Af 26 L AST 64 H Total Protein 8.7 H TSH 11/19/18 19:17 Hgb Hct MCH RDW Seg Neutrophils % PT APTT Potassium Chloride BUN Creatinine Est GFR ( Amer) Est GFR (MDRD) Non-Af AST Total Protein TSH 32.70 H Discharge - Discharge Clinical Impression: Near syncope, Symptomatic bradycardia, Paroxysmal atrial fibrillation, Hypokalemia Condition: Stable Disposition: ADMITTED OBSERVATION Admitting Provider: Adama (Hospitalist) Unit Admitted: IMCU Referrals: SEBLE MEDLEY MD [Primary Care Provider] - Follow up as needed
[2018-11-19] MEDS ORDERED: NORMAL SALINE 1000 ML 1,000 ML with POTASSIUM CHLORIDE 40 MEQ IV ONE ×2 (22:21)
[2018-11-19] MEDS ORDERED: MAGNESIUM HYDROXIDE SUSP 30 ML UDCUP PO PRN (23:17)
[2018-11-19] MEDS ORDERED: ONDANSETRON HCL INJ/PF 4 MG/2 ML SDV IV PRN (23:17)
[2018-11-19] MEDS ORDERED: MAG HYDROX/AL HYDROX/SIMETH SUSP 30 ML UDCUP PO PRN (23:17)
[2018-11-19] MEDS ORDERED: TEMAZEPAM 7.5 MG CAPSULE PO PRN (23:17)
--- NOTE | 2018-11-19 23:20 | EKG REPORT ---
SEVERITY:- ABNORMAL ECG - ATRIAL FIBRILLATION NONSPECIFIC T ABNORMALITIES, LATERAL LEADS : Confirmed by: Floresita Long MD 19-Nov-2018 23:19:56
[2018-11-19] MEDS ORDERED: HYDRALAZINE HCL INJ/PF 20 MG/1 ML SDV IV PRN (23:22)
[2018-11-19] MEDS ORDERED: MORPHINE SULFATE 10 MG/ML INJ IV PRN ×4 (23:22→23:39)
[2018-11-19] MEDS ORDERED: ACETAMINOPHEN 325 MG TABLET PO PRN (23:22)
[2018-11-19] MEDS ORDERED: LEVALBUTEROL HCL NEB 0.63 MG/3 ML AMPUL NEB PRN (23:22)
[2018-11-19] MEDS ORDERED: ASPIRIN 81 MG TABLET, CHEWABLE ONE (23:32)
[2018-11-20 01:34] LABS: CREATINE KINASE MB 1.43 ng/mL (<4.55)
[2018-11-20 01:35] LABS: TROPONIN I < 0.012 ng/mL
[2018-11-20] MEDS ORDERED: LEVOTHYROXINE SODIUM 0.1 MG TABLET PO SCH (06:00)
--- NOTE | 2018-11-20 06:20 | PDOC H&P ---
History of Present Illness Admission Date/PCP: 11/19/2018 22:49 SEBLE MEDLEY MD Patient complains of: Near syncope History of Present Illness: KATARZYNA MADRID is a 78 year old female who presented to the emergency room with the acute feeling that she was going to pass out. She admits that she was going shopping and suddenly developed a very rapid heart rate with moderately intense palpitations and severe diaphoresis accompanying the feeling that she was about to pass out. She managed to get herself back into her car and sat down. She then came to the emergency room for evaluation. She denies other associated or accompanying signs or symptoms and acknowledges prior similar episodes related to her paroxysmal atrial fibrillation. She has not identified any aggravating or ameliorating factors for her near syncope. In the emergency room she was found to be in atrial fibrillation with a controlled ventricular response in the 50s to 60s. She was also noted to be mildly hypokalemic at 3.0 and was additionally noted to have resolution of her symptoms by the time she arrived at the emergency room. She was subsequently admitted to hospital for further evaluation treatment. Past Medical History Cardiac Medical History: Reports: Atrial Fibrillation, Hypertension Denies: Congestive Heart Failure, Coronary Artery Disease, Myocardial I nfarction Pulmonary Medical History: Denies: Asthma, Bronchitis, Chronic Obstructive Pulmonary Disease (COPD), Pneumonia EENT Medical History: Denies: Cataracts, Ears - Hearing aids Neurological Medical History: Denies: Hemorrhagic CVA, Ischemic CVA, Seizures Endocrine Medical History: Denies: Diabetes Mellitus Type 1, Diabetes Mellitus Type 2, Hyperthyroidism, Hypothyroidism Renal/ Medical History: Denies: Chronic Kidney Disease, Nephrolithiasis Malignancy Medical History: Reports: None GI Medical History: Denies: Cirrhosis, Hepatitis Musculoskeltal Medical History: Denies: Arthritis, Gout Skin Medical History: Denies: Eczema, Psoriasis Psychiatric Medical History: Denies: Alcohol Dependency, Depression, Substance Abuse, Tobacco Dependency Traumatic Medical History: Reports: None Hematology: Denies: Anemia, Bleeding Tendencies Infectious Medical History: Reports: None Past Surgical History Past Surgical History: Reports: Hysterectomy, Other - "Thyroid surgery" Social History Information Source: Patient Lives with: Alone Smoking Status: Never Smoker Electronic Cigarette use?: No Frequency of Alcohol Use: None Hx Recreational Drug Use: No Drugs: None Hx Prescription Drug Abuse: No - Advance Directive Resuscitation Status: Full Code Surrogate healthcare decision maker:: Mary Porfirio Family History Family History: Hypertension, Malignancy Parental Family History Reviewed: Yes - Mother had colon cancer Children Family History Reviewed: No Sibling(s) Family History Reviewed.: Yes Medication/Allergy Home Medications: Albuterol Sulfate [Proair HFA Inhalation Aerosol 8.5 gm MDI] 1 puff IH ASDIR PRN 10/26/18 Ascorbic Acid [Vitamin C 500 mg Tablet] 500 mg PO DAILY 10/26/18 Aspirin [[place] Aspirin] 81 mg PO DAILY 10/26/18 Calcium Carbonate/Vitamin D3 [Calcium 600 + Vit D Tablet] 1 tab PO DAILY 10/26/18 Dabigatran Etexilate Mesylate [Pradaxa 150 mg Capsule] 150 mg PO Q12 10/26/18 Dronedarone Hydrochloride [Multaq 400 mg Tablet] 400 mg PO Q12 10/26/18 Ferrous Sulfate [Iron] 325 mg PO DAILY 10/26/18 Furosemide [Lasix 20 mg Tablet] 40 mg PO DAILY 10/26/18 Hydralazine HCl [Apresoline 25 mg Tablet] 25 mg PO Q12 10/26/18 Levothyroxine Sodium [Synthroid] 200 mcg PO Q6AM 10/26/18 Losartan Potassium [Cozaar 100 mg Tablet] 100 mg PO DAILY 10/26/18 Metoprolol Tartrate [Lopressor 100 mg Tablet] 100 mg PO Q12 10/26/18 Multivitamin [One-A-Day Essential] 1 each PO DAILY 10/26/18 Nifedipine [Nifedipine ER] 90 mg PO DAILY 10/26/18 Pantoprazole Sodium [Protonix] 40 mg PO QAM #30 tablet. 10/27/18 Allergies/Adverse Reactions: No Known Allergies Allergy (Verified 11/19/18 17:57) Review of Systems Constitutional: ABSENT: chills, fever(s) Eyes: ABSENT: visual disturbances, other - Eye pain Ears: ABSENT: other - Ear pain Nose, Mouth, and Throat: ABSENT: mouth pain, sore throat Cardiovascular: PRESENT: as per HPI, palpitations, other - Near syncope. ABSENT: chest pain, dyspnea on exertion, edema, orthropnea Respiratory: ABSENT: cough, dyspnea Gastrointestinal: ABSENT: abdominal pain, constipation, diarrhea, nausea, vomiting Genitourinary: ABSENT: dysuria, hematuria Musculoskeletal: ABSENT: back pain, joint swelling, muscle weakness Integumentary: PRESENT: as per HPI, diaphoresis. ABSENT: pruritus, rash Neurological: PRESENT: other - Near syncope. ABSENT: confusion, convulsions, focal weakness, memory loss Psychiatric: ABSENT: anxiety, depression Endocrine: ABSENT: cold intolerance, heat intolerance Hematologic/Lymphatic: ABSENT: easy bleeding, easy bruising Allergic/Immunologic: ABSENT: seasonal rhinorrhea Physical Exam Vital Signs: Temp Pulse Resp BP Pulse Ox 98.6 F 59 L 23 H 135/60 H 97 11/19/18 22:28 11/19/18 22:28 11/19/18 22:28 11/19/18 22:28 11/19/18 22:28 Intake & Output 11/17/18 11/18/18 11/19/18 23:59 23:59 23:59 Weight 85.275 kg General appearance: PRESENT: no acute distress, cooperative Head exam: PRESENT: atraumatic, normocephalic Eye exam: PRESENT: conjunctiva pink. ABSENT: conjunctival injection, scleral icterus Ear exam: PRESENT: normal external ear exam. ABSENT: bleeding, drainage Mouth exam: PRESENT: dry mucosa, neck supple Neck exam: ABSENT: thyromegaly, tracheal deviation Respiratory exam: PRESENT: clear to auscultation cinda, symmetrical, unlabored Cardiovascular exam: PRESENT: irregular rhythm - Irregularly irregular rate and rhythm. ABSENT: clicks, gallop, rubs Pulses: PRESENT: normal radial pulses, normal dorsalis pedis pul Vascular exam: PRESENT: normal capillary refill. ABSENT: pallor GI/Abdominal exam: PRESENT: normal bowel sounds, soft Rectal exam: PRESENT: deferred Extremities exam: ABSENT: joint swelling, pedal edema Musculoskeletal exam: ABSENT: deformity, dislocation Neurological exam: PRESENT: alert, oriented to person, oriented to place, oriented to time, oriented to situation, CN II-XII grossly intact. ABSENT: motor sensory deficit Psychiatric exam: PRESENT: appropriate affect, normal mood Skin exam: PRESENT: dry, intact, warm. ABSENT: jaundice, rash, urticaria Results Laboratory Results: 11/19/18 19:17 11/19/18 19:17 11/19/18 11/19/18 11/19/18 19:17 19:17 19:17 WBC 7.3 RBC 4.31 Hgb 11.5 L Hct 34.4 L MCV 80 MCH 26.6 L MCHC 33.3 RDW 16.2 H Plt Count 262 Seg Neutrophils % 40.2 L Sodium 139.9 Potassium 3.0 L* Chloride 97 L Carbon Dioxide 30 Anion Gap 13 BUN 29 H Creatinine 1.84 H Est GFR ( Amer) 32 L Glucose 96 Calcium 9.5 Magnesium 2.0 Total Bilirubin 0.3 AST 64 H Alkaline Phosphatase 87 Total Protein 8.7 H Albumin 4.6 TSH 32.70 H 11/19/18 11/19/18 19:17 19:17 Creatine Kinase 106 CK-MB (CK-2) 0.89 Troponin I < 0.012 NT-Pro-B Natriuret Pep 247 Impressions: Chest X-Ray 11/19/18 18:02 IMPRESSION: No acute findings Assessment and Plan - Diagnosis (1) Near syncope Is this a current diagnosis for this admission?: Yes (2) Heart palpitations Is this a current diagnosis for this admission?: Yes (3) Diaphoresis Is this a current diagnosis for this admission?: Yes (4) Paroxysmal atrial fibrillation Is this a current diagnosis for this admission?: Yes (5) Hypokalemia Is this a current diagnosis for this admission?: Yes (6) Chronic anticoagulation Is this a current diagnosis for this admission?: Yes (7) Elevated TSH Is this a current diagnosis for this admission?: Yes - Plan Summary Summary: Patient is admitted observation status will be in a monitored bed in [facility]. Her vital signs and neuro checks will be observed closely and her heart rate will be continuously monitored. Her potassium will be repleted with IV and oral potassium. Serial cardiac enzymes will be performed. Patient will be continued on her usual home medications throughout her hospital course. As the patient has undergone a cardiac stress test within the last 2 years, with a negative result, no planning for a stress test will be entertained at this time. - Time Time Spent with patient: 15-24 minutes Medications reviewed and adjusted accordingly: Yes Anticipated discharge: Home - Inpatient Certification Based on my medical assessment, after consideration of the patient's comorbidities, presenting symptoms, or acuity I expect that the services needed warrant INPATIENT care.: No I certify that my determination is in accordance with my understanding of Medicare's requirements for reasonable and necessary INPATIENT services [42 CFR 412.3e].: No Medical Necessity: Need For Continuous Telemetry Monitoring, Risk of Complication if Not Cared For in Hospital
[2018-11-20 08:12] LABS: CREATINE KINASE MB 1.34 ng/mL (<4.55)
[2018-11-20 08:14] LABS: ANION GAP 9 (5-19); BLOOD UREA NITROGEN 23 mg/dL (7-20); CALCIUM 9.1 mg/dL (8.4-10.2); CARBON DIOXIDE 27 mmol/L (22-30); CHLORIDE 107 mmol/L (98-107); GLUCOSE 84 mg/dL (75-110)
[2018-11-20 08:22] LABS: TROPONIN I < 0.012 ng/mL
[2018-11-20 08:37] LABS: POTASSIUM 4.2 mmol/L (3.6-5.0)
[2018-11-20] MEDS ORDERED: DABIGATRAN ETEXILATE 150 MG CAPSULE PO SCH (10:00)
[2018-11-20] MEDS: FAMOTIDINE 20 MG TABLET PO SCH ×2 (10:53→21:10)
[2018-11-20] MEDS: DOCUSATE SODIUM 100 MG CAPSULE PO SCH ×2 (10:53→18:03)
--- NOTE | 2018-11-20 11:06 | PDOC PROGRESS REPORT ---
Subjective Progress Note for:: 11/20/18 Subjective:: Patient feels comfortable resting in bed. She has no difficulty breathing. She denies palpitations or chest discomfort. Reason For Visit: PARAOXYSMAL ATRIAL FIBRILLATION NEAR SYNCOPE Physical Exam Vital Signs: Temp Pulse Resp BP Pulse Ox 97.7 F 57 L 13 122/51 L 99 11/20/18 03:53 11/20/18 07:00 11/20/18 03:53 11/20/18 03:53 11/20/18 03:53 Intake & Output 11/19/18 11/20/18 11/21/18 06:59 06:59 06:59 Weight 87.9 kg General appearance: PRESENT: no acute distress, cooperative, well-developed Head exam: PRESENT: atraumatic, normocephalic Eye exam: PRESENT: conjunctiva pink. ABSENT: PERRLA Ear exam: PRESENT: bleeding, drainage, normal external ear exam Respiratory exam: PRESENT: clear to auscultation cinda, symmetrical, unlabored. ABSENT: rales, rhonchi, tachypnea, wheezes Cardiovascular exam: PRESENT: bradycardia, irregular rhythm - Irregular and slow. ABSENT: systolic murmur GI/Abdominal exam: PRESENT: normal bowel sounds, soft. ABSENT: distended, tenderness Extremities exam: ABSENT: pedal edema Musculoskeletal exam: PRESENT: ambulatory, normal inspection. ABSENT: deformity Neurological exam: PRESENT: alert, awake, oriented to person, oriented to place, oriented to time, oriented to situation, CN II-XII grossly intact Psychiatric exam: PRESENT: appropriate affect, normal mood. ABSENT: agitated, anxious Focused psych exam: ABSENT: delusional, restlessness Results Laboratory Results: 11/19/18 19:17 11/20/18 07:13 11/19/18 11/19/18 11/19/18 19:17 19:17 19:17 WBC 7.3 RBC 4.31 Hgb 11.5 L Hct 34.4 L MCV 80 MCH 26.6 L MCHC 33.3 RDW 16.2 H Plt Count 262 Seg Neutrophils % 40.2 L Sodium 139.9 Potassium 3.0 L* Chloride 97 L Carbon Dioxide 30 Anion Gap 13 BUN 29 H Creatinine 1.84 H Est GFR ( Amer) 32 L Glucose 96 Calcium 9.5 Magnesium 2.0 Total Bilirubin 0.3 AST 64 H Alkaline Phosphatase 87 Total Protein 8.7 H Albumin 4.6 TSH 32.70 H Free T4 Free T3 pg/mL 11/19/18 11/19/18 11/19/18 19:17 19:17 19:17 WBC RBC Hgb Hct MCV MCH MCHC RDW Plt Count Seg Neutrophils % Sodium Potassium Chloride Carbon Dioxide Anion Gap BUN Creatinine Est GFR ( Amer) Glucose Calcium Magnesium 2.0 Total Bilirubin AST Alkaline Phosphatase Total Protein Albumin TSH Free T4 1.10 Free T3 pg/mL 2.31 L 11/20/18 07:13 WBC RBC Hgb Hct MCV MCH MCHC RDW Plt Count Seg Neutrophils % Sodium 143.1 Potassium 4.2 D Chloride 107 Carbon Dioxide 27 Anion Gap 9 BUN 23 H Creatinine 1.27 H Est GFR ( Amer) 49 L Glucose 84 Calcium 9.1 Magnesium Total Bilirubin AST Alkaline Phosphatase Total Protein Albumin TSH Free T4 Free T3 pg/mL 11/19/18 11/19/18 11/20/18 19:17 19:17 00:30 Creatine Kinase 106 Cancelled CK-MB (CK-2) 0.89 Troponin I < 0.012 NT-Pro-B Natriuret Pep 247 11/20/18 11/20/18 11/20/18 00:30 02:50 07:13 Creatine Kinase 95 87 CK-MB (CK-2) 1.43 Troponin I < 0.012 NT-Pro-B Natriuret Pep 11/20/18 07:13 Creatine Kinase CK-MB (CK-2) 1.34 Troponin I < 0.012 NT-Pro-B Natriuret Pep Impressions: Chest X-Ray 11/19/18 18:02 IMPRESSION: No acute findings Assessment and Plan - Diagnosis (1) Near syncope Is this a current diagnosis for this admission?: Yes (2) Paroxysmal atrial fibrillation Is this a current diagnosis for this admission?: Yes (3) Hypokalemia Is this a current diagnosis for this admission?: Yes (4) Hypothyroidism associated with surgical procedure Is this a current diagnosis for this admission?: Yes (5) Chronic anticoagulation Is this a current diagnosis for this admission?: Yes - Plan Summary Summary: Patient is admitted observation status will be in a monitored bed in [facility]. Her vital signs and neuro checks will be observed closely and her heart rate will be continuously monitored. Her potassium will be repleted with IV and oral potassium. Serial cardiac enzymes will be performed. Patient will be continued on her usual home medications throughout her hospital course. As the patient has undergone a cardiac stress test within the last 2 years, with a negative result, no planning for a stress test will be entertained at this time. 11/20/2018- The patient is still bradycardic. There are parameters for holding her medi cations if needed. She may need less negative chronotropic medications as she remains in atrial fibrillation but with good control. She will continue on chronic anticoagulation for the atrial fibrillation. Hypokalemia-corrected Hypothyroidism-the patient has had a thyroidectomy. Her T3 levels are just under the therapeutic range. This would also account for her markedly elevated TSH. Continue current regimen of levothyroxine 200 mcg daily and follow-up with endocrinology. - Time Time Spent with patient: 15-24 minutes Medications reviewed and adjusted accordingly: Yes Anticipated discharge: Home Within: within 24 hours
[2018-11-20] MEDS: HYDROCHLOROTHIAZIDE 25 MG TABLET PO SCH (13:41)
[2018-11-20] MEDS: NIFEDIPINE 30 MG TAB.ER.24 PO SCH ×2 (13:42→21:09)
[2018-11-20] MEDS: LOSARTAN POTASSIUM 50 MG TABLET PO SCH (13:42)
[2018-11-20] MEDS: LEVOTHYROXINE SODIUM 0.1 MG TABLET PO SCH (13:42)
[2018-11-20 14:09] LABS: CREATINE KINASE MB 1.13 ng/mL (<4.55)
[2018-11-20 14:12] LABS: TROPONIN I < 0.012 ng/mL
[2018-11-20] MEDS ORDERED: (PENDING PHARMACY ID) (Nifedipine [Nifedipine Er] 90 MG) PO SCH (18:00)
[2018-11-20] MEDS: DRONEDARONE HYDROCHLORIDE 400 MG TABLET PO SCH (18:02)
[2018-11-20] MEDS: DABIGATRAN ETEXILATE 150 MG CAPSULE PO SCH (18:02)
[2018-11-20] MEDS: METOPROLOL TARTRATE 100 MG TABLET PO SCH (21:10)
[2018-11-20] MEDS: HYDRALAZINE HCL 25 MG TABLET PO SCH (21:10)
[2018-11-21] MEDS: LEVOTHYROXINE SODIUM 0.1 MG TABLET PO SCH (05:21)
[2018-11-21] MEDS ORDERED: INFLUENZA QUAD (6MOS+) 2019-20 VAC 0.5 ML SYR IM ONE (08:00)
--- NOTE | 2018-11-21 09:51 | PDOC DISCHARGE SUMMARY ---
Impression - Admit/DC Date/PCP Admission Date/Primary Care Provider: 11/19/18 23:18 SEBLE MEDLEY MD Discharge Date: 11/21/18 - Discharge Diagnosis (1) Near syncope Is this a current diagnosis for this admission?: Yes (2) Paroxysmal atrial fibrillation Is this a current diagnosis for this admission?: Yes (3) Hypokalemia Is this a current diagnosis for this admission?: Yes (4) Hypothyroidism associated with surgical procedure Is this a current diagnosis for this admission?: Yes (5) Chronic anticoagulation Is this a current diagnosis for this admission?: Yes - Assessment Summary: Patient is admitted observation status will be in a monitored bed in [facility]. Her vital signs and neuro checks will be observed closely and her heart rate will be continuously monitored. Her potassium will be repleted with IV and oral potassium. Serial cardiac enzymes will be performed. Patient will be continued on her usual home medications throughout her hospital course. As the patient has undergone a cardiac stress test within the last 2 years, with a negative result, no planning for a stress test will be entertained at this time. 11/20/2018- The patient is still bradycardic. There are parameters for holding her medications if needed. She may need less negative chronotropic medications as she remains in atrial fibrillation but with good control. She will continue on chronic anticoagulation for the atrial fibrillation. Hypokalemia-corrected Hypothyroidism-the patient has had a thyroidectomy. Her T3 levels are just under the therapeutic range. This would also account for her markedly elevated TSH. Continue current regimen of levothyroxine 200 mcg daily and follow-up with endocrinology. - Additional Information Resuscitation Status: Full Code Discharge Diet: Cardiac Discharge Activity: Activity As Tolerated Referrals: NYDIA WILBURN PA-C [NO LOCAL MD] - 11/30/18 3:00 pm SEBLE EMDLEY MD [Primary Care Provider] - Follow up as needed Home Medications: Dabigatran Etexilate Mesylate [Pradaxa 150 mg Capsule] 150 mg PO BID 11/20/18 Dronedarone Hydrochloride [Multaq 400 mg Tablet] 400 mg PO BID 11/20/18 Furosemide [Lasix 20 mg Tablet] 20 mg PO DAILY 11/20/18 Hydralazine HCl [Apresoline 25 mg Tablet] 25 mg PO BID 11/20/18 Levothyroxine Sodium [Synthroid] 200 mcg PO Q6AM 11/20/18 Losartan/Hydrochlorothiazide [Hyzaar 100-25 Tablet] 1 tab PO DAILY 11/20/18 Metoprolol Tartrate [Lopressor 100 mg Tablet] 100 mg PO Q12 11/20/18 Nifedipine [Nifedipine ER] 90 mg PO BID 11/20/18 Potassium Chloride [Klor-Con 10 Meq Capsule ER] 10 meq PO DAILY 11/20/18 Acetaminophen [Tylenol 325 mg Tablet] 650 mg PO Q4HP PRN tablet 11/21/18 Docusate Sodium [Colace 100 mg Capsule] 100 mg PO BID capsule 11/21/18 History of Present Illiness History of Present Illness: KATARZYNA MADRID is a 78 year old female with a history of atrial fibrillation and hypertension had episodes of pronounced palpitations, lightheadedness and she felt like she was going to pass out. She was hypokalemic by laboratory studies at admission. She exhibited atrial fibrillation with borderline bradycardic response. She was referred to the hospital service for admission. Hospital Course Hospital Course: Vital signs remained stable. She does have history of thyroid cancer and has had a thyroidectomy. Her T3 was just below the lower limit normal and her T4 was in the normal range. After 48 hours there was no recurrent episode. She is stable. She will be discharged home. Physical Exam Vital Signs: Temp Pulse Resp BP Pulse Ox 98.2 F 63 14 124/47 L 99 11/21/18 03:50 11/21/18 07:00 11/21/18 03:50 11/21/18 03:54 11/21/18 03:54 Intake & Output 11/20/18 11/21/18 11/22/18 06:59 06:59 06:59 Intake Total 2300 Balance 2300 Weight 87.9 kg 90.2 kg General appearance: PRESENT: no acute distress, cooperative, well-developed Head exam: PRESENT: atraumatic, normocephalic Eye exam: PRESENT: conjunctiva pink. ABSENT: scleral icterus Ear exam: PRESENT: normal external ear exam. ABSENT: bleeding, drainage Mouth exam: PRESENT: moist, tongue midline Respiratory exam: PRESENT: clear to auscultation cinda, symmetrical, unlabored. ABSENT: rales, rhonchi, tachypnea, wheezes Cardiovascular exam: PRESENT: bradycardia - By auscultation the patient sounds to have a very regular but slow rhythm., +S1, +S2, systolic murmur - 2/6 GI/Abdominal exam: PRESENT: normal bowel sounds, soft. ABSENT: distended, tenderness Rectal exam: PRESENT: deferred Gentrourinary exam: ABSENT: indwelling catheter Extremities exam: PRESENT: full ROM, pedal edema - Trace. ABSENT: tenderness Musculoskeletal exam: PRESENT: ambulatory, full ROM, normal inspection Neurological exam: PRESENT: alert, awake, oriented to person, oriented to place, oriented to time, oriented to situation, CN II-XII grossly intact Psychiatric exam: PRESENT: appropriate affect, normal mood. ABSENT: agitated, anxious Focused psych exam: ABSENT: delusional, restlessness Skin exam: PRESENT: dry, normal color, warm. ABSENT: rash Results Laboratory Results: WBC 7.3 10^3/uL (4.0-10.5) 11/19/18 19:17 RBC 4.31 10^6/uL (3.72-5.28) 11/19/18 19:17 Hgb 11.5 g/dL (12.0-15.5) L 11/19/18 19:17 Hct 34.4 % (36.0-47.0) L 11/19/18 19:17 MCV 80 fl (80-97) 11/19/18 19:17 MCH 26.6 pg (27.0-33.4) L 11/19/18 19:17 MCHC 33.3 g/dL (32.0-36.0) 11/19/18 19:17 RDW 16.2 % (11.5-14.0) H 11/19/18 19:17 Plt Count 262 10^3/uL (150-450) 11/19/18 19:17 Lymph % (Auto) 42.2 % (13-45) 11/19/18 19:17 [place] % (Auto) 11.1 % (3-13) 11/19/18 19:17 Eos % (Auto) 5.3 % (0-6) 11/19/18 19:17 Baso % (Auto) 1.2 % (0-2) 11/19/18 19:17 Absolute Neuts (auto) 2.9 10^3/uL (1.7-8.2) 11/19/18 19:17 Absolute Lymphs (auto) 3.1 10^3/uL (0.5-4.7) 11/19/18 19:17 Absolute Monos (auto) 0.8 10^3/uL (0.1-1.4) 11/19/18 19:17 Absolute Eos (auto) 0.4 10^3/uL (0.0-0.6) 11/19/18 19:17 Absolute Basos (auto) 0.1 10^3/uL (0.0-0.2) 11/19/18 19:17 Seg Neutrophils % 40.2 % (42-78) L 11/19/18 19:17 PT 22.6 SEC (11.4-15.4) H 11/19/18 19:17 INR 1.96 11/19/18 19:17 APTT 79.9 SEC (23.5-35.8) H 11/19/18 19:17 Sodium 143.1 mmol/L (137-145) 11/20/18 07:13 Potassium 4.2 mmol/L (3.6-5.0) D 11/20/18 07:13 Chloride 107 mmol/L (98-107) 11/20/18 07:13 Carbon Dioxide 27 mmol/L (22-30) 11/20/18 07:13 Anion Gap 9 (5-19) 11/20/18 07:13 BUN 23 mg/dL (7-20) H 11/20/18 07:13 Creatinine 1.27 mg/dL (0.52-1.25) H 11/20/18 07:13 Est GFR ( Amer) 49 (>60) L 11/20/18 07:13 Est GFR (MDRD) Non-Af 41 (>60) L 11/20/18 07:13 Glucose 84 mg/dL (75-110) 11/20/18 07:13 Calcium 9.1 mg/dL (8.4-10.2) 11/20/18 07:13 Magnesium 2.0 mg/dL (1.6-2.3) 11/19/18 19:17 Magnesium 2.0 mg/dL (1.6-2.3) 11/19/18 19:17 Total Bilirubin 0.3 mg/dL (0.2-1.3) 10/04/19 19:17 Direct Bilirubin 0.3 mg/dL (0.0-0.4) 11/19/18 19:17 Neonat Total Bilirubin Not Reportable 11/19/18 19:17 Neonat Direct Bilirubin Not Reportable 11/19/18 19:17 Neonat Indirect Bili Not Reportable 11/19/18 19:17 AST 64 U/L (14-36) H 11/19/18 19:17 ALT 15 U/L (<35) 11/19/18 19:17 Alkaline Phosphatase 87 U/L (38-126) 11/19/18 19:17 Creatine Kinase 80 U/L (30-135) 11/20/18 13:23 CK-MB (CK-2) 1.13 ng/mL (<4.55) 11/20/18 13:23 Troponin I < 0.012 ng/mL 11/20/18 13:23 NT-Pro-B Natriuret Pep 247 pg/mL (<450) 11/19/18 19:17 Total Protein 8.7 g/dL (6.3-8.2) H 11/19/18 19:17 Albumin 4.6 g/dL (3.5-5.0) 11/19/18 19:17 TSH 32.70 uIU/mL (0.47-4.68) H 11/19/18 19:17 Free T4 1.10 ng/dL (0.78-2.19) 11/19/18 19:17 Free T3 pg/mL 2.31 pg/mL (2.77-5.27) L 11/19/18 19:17 11/19/18 11/20/18 11/20/18 19:17 00:30 07:13 CK-MB (CK-2) 0.89 1.43 1.34 Troponin I < 0.012 < 0.012 < 0.012 NT-Pro-B Natriuret Pep 247 11/20/18 13:23 CK-MB (CK-2) 1.13 Troponin I < 0.012 NT-Pro-B Natriuret Pep Impressions: Chest X-Ray 11/19/18 18:02 IMPRESSION: No acute findings Plan Health Concerns: Episodes of bradycardia with hypotension potentially causing syncope. Plan of Treatment: Patient was discharged home on her current medication regimen. I discussed with her that she should check her pulse and blood pressure regularly and if she fee ls lightheaded or having any symptoms. She should consider holding medicine for bradycardia or hypotension. I asked her to discuss this with Dr. Ventura and he might give her parameters as to which medication to hold at what level of pulse and blood pressure. Goals: Continued good rate control without bradycardia and good blood pressure control. Maintain normal serum potassium. Time Spent: Greater than 30 Minutes Stroke Is this a Stroke Patient?: No Acute Heart Failure - Is this a Heart Failure Patient?: No
[2018-11-21] MEDS: LOSARTAN POTASSIUM 50 MG TABLET PO SCH (09:54)
[2018-11-21] MEDS: DOCUSATE SODIUM 100 MG CAPSULE PO SCH (09:54)
[2018-11-21] MEDS: HYDRALAZINE HCL 25 MG TABLET PO SCH (09:54)
[2018-11-21] MEDS: DABIGATRAN ETEXILATE 150 MG CAPSULE PO SCH (09:55)
[2018-11-21] MEDS: FAMOTIDINE 20 MG TABLET PO SCH (09:55)
[2018-11-21] MEDS: DRONEDARONE HYDROCHLORIDE 400 MG TABLET PO SCH (09:55)
[2018-11-21] MEDS: HYDROCHLOROTHIAZIDE 25 MG TABLET PO SCH (09:55)
[2018-11-21] MEDS: METOPROLOL TARTRATE 100 MG TABLET PO SCH (09:55)
[2018-11-21] MEDS: NIFEDIPINE 30 MG TAB.ER.24 PO SCH (09:55)
[2018-11-21 10:00] VITALS: BP 131/51
[2018-11-21] MEDS ORDERED: (PENDING PHARMACY ID) (Losartan/Hydrochlorothiazide [Hyzaar 100-25 Tablet] 1 TAB) PO SCH (10:00)
[2018-11-21] MEDS ORDERED: FUROSEMIDE 20 MG TABLET PO SCH (10:00)
== END 2018-11-21 11:04 | disposition home or self-care (01) ==
LOC: ER 17:41 → EH 23:18 → 3W 11-20 01:57
PROVIDERS: ADMIT Emergency Medicine; ATTEND Emergency Medicine
DX: R55 Syncope and collapse (principal); I48.0 Paroxysmal atrial fibrillation; E87.6 Hypokalemia; E89.0 Postprocedural hypothyroidism; R00.1 Bradycardia, unspecified; I10 Essential (primary) hypertension; R61 Generalized hyperhidrosis; Z79.01 Long term (current) use of anticoagulants; Z79.899 Other long term (current) drug therapy; Z85.850 Personal history of malignant neoplasm of thyroid; Z60.2 Problems related to living alone; Z79.82 Long term (current) use of aspirin
CPT/HCPCS: 93005; 99285; 96360; 96361; 36415 ×2; 84439; 82553 ×2; 82550 ×2; 83735; 84443; 85025; 85610; 85730; 80048; 80053; 84484 ×2; 84481; 83880; 71046; 93010; G0378 ×4; A9270 ×10; J3480; J3490 ×3; J7030

== ENCOUNTER → 2018-12-29 | Outpatient (CLI) | payer MEDICARE, MEDICAID ==
[2018-12-29 14:17] LABS: HEMATOCRIT 32.3 % (36.0-47.0); HEMOGLOBIN 10.9 g/dL (12.0-15.5); MEAN CORPUSCULAR HEMOGLOBIN 27.7 pg (27.0-33.4); MEAN CORPUSCULAR HGB CONC 33.8 g/dL (32.0-36.0); MEAN CORPUSCULAR VOLUME 82 fl (80-97); PLATELET COUNT 239 10^3/uL (150-450); RED BLOOD COUNT 3.95 10^6/uL (3.72-5.28); RED CELL DISTRIBUTION WIDTH 15.9 % (11.5-14.0); WHITE BLOOD COUNT 6.3 10^3/uL (4.0-10.5)
[2018-12-29 14:36] LABS: ANION GAP 10 (5-19); BLOOD UREA NITROGEN 24 mg/dL (7-20); CALCIUM 9.2 mg/dL (8.4-10.2); CARBON DIOXIDE 30 mmol/L (22-30); CHLORIDE 102 mmol/L (98-107); GLUCOSE 100 mg/dL (75-110); POTASSIUM 3.9 mmol/L (3.6-5.0)
[2018-12-29 15:36] LABS: APPEARANCE,URINE SLIGHTLY-CLOUDY; BILIRUBIN,URINE NEGATIVE (NEGATIVE); COLOR,URINE YELLOW; GLUCOSE, URINE NEGATIVE (NEGATIVE); KETONES,URINE NEGATIVE (NEGATIVE); LEUKOCYTE ESTERASE,URINE MODERATE (NEGATIVE); NITRITE,URINE NEGATIVE (NEGATIVE); PROTEIN,URINE NEGATIVE (NEGATIVE); URINE SPECIFIC GRAVITY 1.011; UROBILINOGEN,URINE NEGATIVE mg/dL (<2.0)
== END ==
LOC: OD 13:34
PROVIDERS: ATTEND Internal Medicine Nephrology
DX: I12.9 Hypertensive chronic kidney disease with stage 1 through stage 4 chronic kidney disease, or unspecified chronic kidney disease (principal); N18.3 Chronic kidney disease, stage 3 (moderate); D63.1 Anemia in chronic kidney disease; D50.9 Iron deficiency anemia, unspecified; N39.0 Urinary tract infection, site not specified
CPT/HCPCS: 36415; 80048; 81001; 85027; 87086; 87088

== ENCOUNTER → 2019-06-29 | Outpatient (CLI) | payer MEDICARE, MEDICAID ==
[2019-06-29 10:58] LABS: ABSOLUTE BASOPHILS # (AUTO) 0.1 10^3/uL (0.0-0.2); ABSOLUTE EOSINOPHILS # (AUTO) 0.5 10^3/uL (0.0-0.6); ABSOLUTE LYMPHOCYTES (AUTO) 2.4 10^3/uL (0.5-4.7); ABSOLUTE MONOCYTES (AUTO) 0.7 10^3/uL (0.1-1.4); ABSOLUTE NEUT (AUTO) 2.3 10^3/uL (1.7-8.2); BASOPHILS % (AUTO) 1.3 % (0-2); EOSINOPHILS % (AUTO) 7.6 % (0-6); HEMATOCRIT 31.9 % (36.0-47.0); LYMPHOCYTES % (AUTO) 40.2 % (13-45); MEAN CORPUSCULAR HGB CONC 34.3 g/dL (32.0-36.0); MEAN CORPUSCULAR VOLUME 82 fl (80-97); MONOCYTES % (AUTO) 12.1 % (3-13); PLATELET COUNT 260 10^3/uL (150-450); RED BLOOD COUNT 3.92 10^6/uL (3.72-5.28); RED CELL DISTRIBUTION WIDTH 14.2 % (11.5-14.0); SEGMENTED NEUTROPHILS % (AUTO) 38.8 % (42-78); TOTAL CELLS COUNTED % (AUTO) 100 %
[2019-06-29 11:23] LABS: ANION GAP 10 (5-19); BLOOD UREA NITROGEN 25 mg/dL (7-20); CALCIUM 9.1 mg/dL (8.4-10.2); CARBON DIOXIDE 30 mmol/L (22-30); CHLORIDE 95 mmol/L (98-107); GLUCOSE 91 mg/dL (75-110); POTASSIUM 3.3 mmol/L (3.6-5.0)
[2019-06-29 11:42] LABS: APPEARANCE,URINE SLIGHTLY-CLOUDY; BILIRUBIN,URINE NEGATIVE (NEGATIVE); COLOR,URINE YELLOW; GLUCOSE, URINE NEGATIVE (NEGATIVE); KETONES,URINE NEGATIVE (NEGATIVE); LEUKOCYTE ESTERASE,URINE LARGE (NEGATIVE); NITRITE,URINE NEGATIVE (NEGATIVE); PROTEIN,URINE NEGATIVE (NEGATIVE); URINE SPECIFIC GRAVITY 1.005; UROBILINOGEN,URINE NEGATIVE mg/dL (<2.0)
== END ==
LOC: OD 10:19
PROVIDERS: ATTEND Internal Medicine Nephrology
DX: I12.9 Hypertensive chronic kidney disease with stage 1 through stage 4 chronic kidney disease, or unspecified chronic kidney disease (principal); N18.3 Chronic kidney disease, stage 3 (moderate); N39.0 Urinary tract infection, site not specified
CPT/HCPCS: 36415; 80048; 81001; 85025

== ENCOUNTER → 2020-01-24 | Outpatient (CLI) | payer MEDICARE, MEDICAID ==
--- NOTE | 2020-01-24 17:39 | XCELERA REPORT ---
[address] [address] Transthoracic Echocardiogram Report Name: KATARZYNA MADRID Age: 79 yrs Gender: Female : 1940 Patient Status: Outpatient Patient Location: Study Date: 01/24/2020 08:12 AM History: Atrial fibrillation Height: 62 in Weight: 180 lb BSA: 1.8 m2 Procedure: A complete two-dimensional transthoracic echocardiogram was performed (2D, M-mode, spectral and color flow Doppler). The study was technically adequate with some images being suboptimal in quality. Reason For Study: HTN History: Atrial fibrillation. HTN. Ordering Physician: MICK TANG Performed By: Vladimir Queen Interpretation Summary Left ventricular systolic function is normal. The Ejection Fraction estimate is 55-60% The right ventricle is normal in size and function. There is a trace amount of mitral regurgitation There is no aortic valve stenosis There is a mild amount of aortic regurgitation There is a mild amount of tricuspid regurgitation There is mild pulmonary hypertension by echo There is no pericardial effusion. MMode/2D Measurements & Calculations RVDd: 3.1 cm LVIDd: 4.5 cm FS: 39.3 % Ao root diam: 2.8 cm IVSd: 0.99 cm LVIDs: 2.8 cm EDV(Teich): 94.4 ml Ao root area: 6.2 cm2 LVPWd: 1.0 cm ESV(Teich): 28.4 ml LA dimension: 4.0 cm EF(Teich): 69.9 % Doppler Measurements & Calculations MV E max renetta: MV P1/2t max renetta: Ao V2 max: AI max renetta: 115.5 cm/sec 105.9 cm/sec 182.6 cm/sec 332.6 cm/sec MV A max renetta: MV P1/2t: 54.5 msec Ao max PG: AI max P.2 cm/sec MVA(P1/2t): 4.0 cm2 13.3 mmHg 44.2 mmHg MV E/A: 1.1 MV dec slope: AI dec slope: 123.0 cm/sec2 569.7 cm/sec2 AI P1/2t: MV dec time: 792.0 msec 0.18 sec LV V1 max PG: PA V2 max: PI end-d renetta: TR max renetta: 8.5 mmHg 105.1 cm/sec 125.1 cm/sec 289.9 cm/sec LV V1 max: PA max P.4 mmHg TR max P.6 cm/sec 33.6 mmHg AV P1/2t-pr_phl: MV P1/2t-pr_phl: 792.0 msec 54.5 msec Left Ventricle The left ventricle is normal in size. There is mild concentric left ventricular hypertrophy. Left ventricular systolic function is normal. The Ejection Fraction estimate is 55-60%. Doppler measurements suggest pseudonormalized left ventricular relaxation, which is associated with grade II/IV or mild to moderate diastolic dysfunction. Right Ventricle The right ventricle is normal in size and function. Atria The right atrium is normal. The left atrium is mildly dilated. The interatrial septum is intact with no evidence for an atrial septal defect. There is no Doppler evidence for an interatrial shunt. Mitral Valve The mitral valve is grossly normal. There is no mitral valve stenosis. There is a trace amount of mitral regurgitation. Aortic Valve The aortic valve opens well. The aortic valve is sclerotic, but shows no functional abnormality. There is no aortic valve stenosis. There is a mild amount of aortic regurgitation. Tricuspid Valve The tricuspid valve is normal in structure and function. There is no tricuspid stenosis. There is a mild amount of tricuspid regurgitation. Best estimated right ventricular systolic pressure is elevated at 30-40mmHg. There is mild pulmonary hypertension by echo. Pulmonic Valve The pulmonic valve is normal in structure and function. There is no pulmonic valvular stenosis. There is a trace amount of pulmonic regurgitation. Great Vessels The aortic root is normal size. The inferior vena cava appeared normal and decreased > 50% with respiration (RAP 5-10 mmHg). Effusions There is no pericardial effusion. : MICK TANG Anil
== END ==
LOC: SP 07:49
PROVIDERS: ATTEND Internal Medicine
DX: I10 Essential (primary) hypertension (principal); R53.83 Other fatigue
CPT/HCPCS: 93306